=== PATIENT | female | born 1975 | race Caucasian/White ===

== ENCOUNTER → 2020-01-20 16:50 | Outpatient (BNVA) | payer BC, SELFPAY | PROVIDERS: Visit Provider Nurse Practitioner Family | DX: M25.562 Pain in left knee (principal) | CPT/HCPCS: 73562 ==

== ENCOUNTER → 2020-01-22 10:34 | Outpatient (BNVA) | payer BC, SELFPAY | PROVIDERS: Visit Provider Family Medicine Adult Medicine | DX: I10 Essential (primary) hypertension (principal); E66.9 Obesity, unspecified; M17.10 Unilateral primary osteoarthritis, unspecified knee | CPT/HCPCS: 80053; 80061; 83036; 84443; 85025 ==

== ENCOUNTER 2024-03-20 08:38 | Outpatient (CLI) | payer OTHER, SELFPAY ==
--- NOTE | 2024-03-20 08:49 | USCV_ITS ---
Jason Krystal Age: 48 Gender: F : 1975 Exam Date: 03/20/2024 08:55 Ordering Phys: Helene Chilel Technologist: ISHA Exam Location: [facility] – [place]_ Indication: Dizziness Risk Factors: Previous Vascular Surgery: Right Brachial BP: / Left Brachial BP: / Right Left Velocity (cm/s) Spectral Plaque Velocity (cm/s) Spectral Plaque Syst/Diast Broadening Syst/Diast Broadening 110.90/15.00 Prox CCA 74.20 / 19.80 89.10/ 19.40 Mid CCA 88.20 / 23.30 62.90/ 17.20 Distal CCA 57.40 / 19.60 66.60/ 12.30 Prox ICA 73.60 / 25.00 66.40/ 20.60 Mid ICA 96.90 / 35.80 81.00/ 24.80 Distal ICA 96.90 / 41.20 103.70 ECA 104.10 1.10 ICA/CCA 1.30 Antegrade Vertebral Antegrade 105.1/ 25.20 cm/s 53.80/ 21.40 cm/s 0 Tri Subclavian Tri 149.8 76.80 0 FINDINGS Comparison: none available. No significant elevation of systolic or diastolic velocities. Waveforms are normal. No significant amount of calcified plaque or intimal thickening identified. Antegrade vertebral arteries. CONCLUSIONS Normal carotid doppler ultrasound. Dr. Yohana Turner DO (Electronically Signed) Final Date: 20 March 2024 09:48 S
== END 2024-03-20 08:39 | disposition home or self-care (01) ==
LOC: RAD 08:46
PROVIDERS: Visit Provider Physician Assistant
DX: R42 Dizziness and giddiness (principal)
CPT/HCPCS: 93880

== ENCOUNTER → 2024-11-02 15:48 | Outpatient (BNVA) | payer OTHER, SELFPAY | PROVIDERS: Visit Provider Nurse Practitioner Family | DX: R05.9 Cough, unspecified (principal); R50.9 Fever, unspecified; J02.9 Acute pharyngitis, unspecified | CPT/HCPCS: 87071; 87400; 87426; 87880 ==